=== PATIENT | male | born 1945 | race Caucasian/White ===

== ENCOUNTER → 2018-02-12 | Outpatient (CLI) | payer MEDICARE, OTHER ==
[~2018-02-12] MED LIST: ASPI-496 PO; CITA20TA6 PO; HYDR12.58 PO; HYDR1TAB20 PO; IMIQ1CRE TP; NAPR220C2 PO; OMEG1CAP6 PO; UBID100C24 PO
== END | disposition home or self-care (01) ==
LOC: CVU 13:07
PROVIDERS: ATTEND Internal Medicine Cardiovascular Disease
DX: I08.1 Rheumatic disorders of both mitral and tricuspid valves (principal); Z87.891 Personal history of nicotine dependence
CPT/HCPCS: 93306

== ENCOUNTER → 2018-02-27 | Outpatient (CLI) | payer MEDICARE, OTHER ==
[~2018-02-27] MED LIST changes: +REGADENOSON 0.4 MG/5 ML SYRINGE ONE
== END | disposition home or self-care (01) ==
LOC: CFH 07:58
PROVIDERS: ATTEND Internal Medicine Cardiovascular Disease
DX: Z01.818 Encounter for other preprocedural examination (principal); I48.91 Unspecified atrial fibrillation; I49.3 Ventricular premature depolarization
CPT/HCPCS: 78452; 93017; A9502; J2785

== ENCOUNTER 2019-05-06 10:28 | Outpatient (CLI) | payer MEDICARE, OTHER ==
[~2019-05-06 10:28] MED LIST changes: +ACET325T14 PO; +AMIO200T42 PO; +APIX5TAB4 PO; +COLC0.6T37 PO; +CYAN100014 PO; +FURO40TA6 PO; +GABA300C10 PO; -HYDR12.58 PO; +HYDR25TA6 PO; +HYDROCHLOROTH12.5 MG PO; +POTA20TA14 PO; -REGADENOSON 0.4 MG/5 ML SYRINGE ONE; +SENN1TAB59 PO; +TIZA2TAB2 PO
== END 2019-05-06 23:59 | disposition home or self-care (01) ==
LOC: ROC 10:28
PROVIDERS: ATTEND Radiology Radiation Oncology
DX: C90.20 Extramedullary plasmacytoma not having achieved remission (principal); I48.91 Unspecified atrial fibrillation; M54.9 Dorsalgia, unspecified; G89.29 Other chronic pain; E78.5 Hyperlipidemia, unspecified; J43.9 Emphysema, unspecified; I10 Essential (primary) hypertension; G62.9 Polyneuropathy, unspecified; Z95.0 Presence of cardiac pacemaker; Z79.899 Other long term (current) drug therapy; Z88.0 Allergy status to penicillin; Z88.2 Allergy status to sulfonamides; Z88.5 Allergy status to narcotic agent; Z88.1 Allergy status to other antibiotic agents
CPT/HCPCS: G0463

== ENCOUNTER 2019-07-13 06:07 | Observation (INO) | payer MEDICARE, OTHER ==
[~2019-07-13] VITALS: Ht 177.8 cm; Wt 113.6 kg
[~2019-07-13 06:07] MED LIST changes: +APIX5TAB PO; +METO50TA82 PO; +POTA20TA89 PO; -TIZA2TAB2 PO; +TIZA2TAB4 PO
[2019-07-13] MEDS ORDERED: SODIUM CHLORIDE 0.9% 1,000 ML IV SCH (06:25)
[2019-07-13 06:40] VITALS: BP 124/84
[2019-07-13] MEDS ORDERED: LIDOCAINE 1%, 20ML ONE (07:07)
[2019-07-13] MEDS ORDERED: PROPOFOL 50 ML ONE (08:02)
[2019-07-13] MEDS ORDERED: FENTANYL PF 250 MCG/5ML ONE (08:02)
[2019-07-13] MEDS ORDERED: MIDAZOLAM 1 MG/ML, 2ML ONE (08:02)
[2019-07-13] MEDS ORDERED: SUCCINYLCHOLINE 20 MG/ML, 10ML ONE ×2 (08:40→09:25)
[2019-07-13] MEDS ORDERED: ROCURONIUM 10MG/ML,5ML ONE (08:40)
[2019-07-13] MEDS ORDERED: ONDANSETRON 2MG/ML, 2ML ONE (09:28)
[2019-07-13] MEDS ORDERED: SENNA/DOCUSATE TABLET PO PRN (10:30)
[2019-07-13] MEDS ORDERED: APIXABAN 5 MG TABLET PO SCH (10:30)
[2019-07-13] MEDS ORDERED: APIXABAN 5 MG TABLET ONE (10:44)
[2019-07-13] MEDS ORDERED: EPHEDRINE 50 MG/ML, 1ML IVPush PRN (11:00)
[2019-07-13] MEDS ORDERED: DIAZEPAM 5 MG/ML, 2ML IVPush PRN (11:00)
[2019-07-13] MEDS ORDERED: ONDANSETRON 2MG/ML, 2ML IV PRN (11:00)
[2019-07-13] MEDS ORDERED: PROMETHAZINE 25 MG/ML, 1ML IV PRN (11:00)
[2019-07-13] MEDS ORDERED: METOPROLOL 1 MG/ML, 5ML IV PRN (11:00)
[2019-07-13] MEDS ORDERED: DIPHENHYDRAMINE 50 MG/ML, 1ML IVPush PRN (11:00)
[2019-07-13] MEDS ORDERED: ONDANSETRON ODT 8 MG PO PRN (11:00)
[2019-07-13] MEDS ORDERED: EPHEDRINE 50 MG/ML, 1ML IM PRN (11:00)
[2019-07-13] MEDS ORDERED: hydrALAzine 20 MG/ML, 1ML IV PRN (11:00)
[2019-07-13] MEDS ORDERED: FENTANYL PF 100 MCG/2ML IV PRN (11:00)
[2019-07-13] MEDS ORDERED: MIDAZOLAM 1 MG/ML, 2ML IV PRN (11:00)
[2019-07-13] MEDS ORDERED: HYDROmorphone 2 MG/ML, 1ML IVPush PRN (11:00)
[2019-07-13 11:27] VITALS: BP 113/74
[2019-07-13] MEDS ORDERED: ACETAMINOPHEN 325 MG TABLET PO PRN (11:30)
[2019-07-13] MEDS: GABAPENTIN 300 MG CAPSULE PO SCH ×3 (12:16→21:27)
[2019-07-13 13:38] VITALS: BP 111/75
[2019-07-13 20:33] VITALS: BP 122/76
[2019-07-13] MEDS: METOPROLOL TARTRATE 50 MG TAB PO SCH (21:26)
[2019-07-13] MEDS: APIXABAN 5 MG TABLET PO SCH (21:27)
[2019-07-14 00:32] VITALS: BP 93/54
[2019-07-14 00:46] VITALS: BP 96/61
[2019-07-14 01:49] VITALS: BP 103/69
[2019-07-14 04:55] VITALS: BP 106/68
[2019-07-14 07:44] VITALS: BP 110/71
[2019-07-14] MEDS: APIXABAN 5 MG TABLET PO SCH (08:40)
[2019-07-14] MEDS: METOPROLOL TARTRATE 50 MG TAB PO SCH (08:40)
[2019-07-14] MEDS: GABAPENTIN 300 MG CAPSULE PO SCH (08:40)
[2019-07-14] MEDS ORDERED: POTASSIUM CHLORIDE 20 MEQ TAB.ER.PRT PO SCH (09:00)
[2019-07-14] MEDS ORDERED: FUROSEMIDE 40 MG TABLET PO SCH (09:00)
[2019-07-14] MEDS ORDERED: AMIODARONE 200 MG TABLET PO SCH (09:00)
[2019-07-14] MEDS ORDERED: CYANOCOBALAMIN 1,000 MCG TABLET PO SCH (09:00)
== END 2019-07-14 11:00 | disposition home or self-care (01) ==
LOC: CACL 06:07 → 5SO 10:15
PROVIDERS: ADMIT Internal Medicine Cardiovascular Disease; ATTEND Internal Medicine Cardiovascular Disease
DX: I48.4 Atypical atrial flutter (principal); I48.91 Unspecified atrial fibrillation; I11.9 Hypertensive heart disease without heart failure; I10 Essential (primary) hypertension; J44.9 Chronic obstructive pulmonary disease, unspecified; Z95.0 Presence of cardiac pacemaker; Z79.01 Long term (current) use of anticoagulants
CPT/HCPCS: 71046; 85347; 93308; 93321; 93325; 93462; 93613; 93621; 93653; 93662; C1730; C1759; C1766; C1893; C1894; G0378; J0330; J2250; J2405; J2704; J3010; J3490